=== PATIENT | female | born 1945 | race Caucasian/White ===

== ENCOUNTER → 2020-11-04 | Outpatient (CLI) | payer MEDICARE ==
--- NOTE | 2020-11-04 15:47 | REP ---
INDICATION: PAIN. The patient describes pain and audible pop after stepping up stairs 1 week ago. COMPARISON: No comparison study is available.. TECHNIQUE: Six views of the right knee are provided. FINDINGS: Six views of the right knee demonstrate mild medial tibiofemoral spurring. There is advanced patellofemoral narrowing and spur formation with sclerosis. There is also non articular spurring of the superior pole of the patella at the quadriceps tendon insertion. There is a fabella posterolaterally. Vascular calcification is noted. In addition, there are multiple osteocartilaginous bodies in the soft tissues adjacent to the upper patella. These suggest the loose bodies in the suprapatellar bursa. No fracture or subluxation is seen. . IMPRESSION: Advanced patellofemoral osteoarthritis. Mild medial compartment osteoarthritis. Multiple large osteocartilaginous loose body suspected in the suprapatellar bursa.. <Electronically signed by William Perkins > 11/04/20 [id number]
== END ==
LOC: M WUC 15:17
PROVIDERS: ATTEND Nurse Practitioner Family
DX: M25.561 Pain in right knee (principal); M17.11 Unilateral primary osteoarthritis, right knee